=== PATIENT | male | born 1945 | race Caucasian/White ===

== ENCOUNTER → 2021-11-07 | Outpatient (CLI) | payer MEDICARE, OTHER ==
[2021-11-07 14:10] LABS: Basophils # (A) 0.03 X 10*3/uL (0.00-0.10); Basophils % (A) 0.4 %; Eosinophils # (A) 0.12 X 10*3/uL (0.04-0.35); Eosinophils % (A) 1.6 %; HCT 46.4 % (39.6-50.0); Immature Grans, Automated 0.4 %; Lymphocytes # (A) 1.06 X 10*3/uL (0.90-5.00); Lymphocytes % (A) 14.4 %; MCH 27.9 pg (27.0-32.0); MCHC 30.2 g/dL (32.0-37.0); MCV 92.4 fL (80.0-97.0); Mean Platelet Volume 9.1 fL (9.5-12.2); Monocytes # (A) 0.79 X 10*3/uL (0.20-1.00); Monocytes % (A) 10.8 %; NRBC Per 100 WBC 0 /100 WBCS (0.0-0.0); Neutrophils # (A) 5.31 X 10*3/uL (1.80-7.70); Neutrophils % (A) 72.4 %; Platelet Count 421 X 10*3/uL (140-440); RBC 5.02 X 10*6/uL (4.40-5.60); RDW 14.4 % (11.5-14.5); WBC 7.34 X 10*3/uL (4.50-10.00)
[2021-11-07 14:18] LABS: African American GFR (CKD) 96.5 (60.0-200.0); Anion Gap 8.3 mmol/L (10.00-18.00); BUN/Creat Ratio 11.33 Ratio (12.00-20.00); Blood Urea Nitrogen 10.2 mg/dL (9.0-27.0); Calcium 9.2 mg/dL (8.7-10.3); Carbon Dioxide 28.7 mmol/L (20.0-27.5); Non-African American GFR(CKD) 83.3 (60.0-200.0); Potassium 4.8 mmol/L (3.5-5.5)
== END | disposition home or self-care (01) ==
LOC: LABPAT 10:32
PROVIDERS: ATTEND Urology
DX: Z01.812 Encounter for preprocedural laboratory examination (principal); C67.9 Malignant neoplasm of bladder, unspecified
CPT/HCPCS: 80048; 85025

== ENCOUNTER 2021-11-15 08:43 | Day surgery (SDC) | payer MEDICARE ==
[2021-11-13 15:34] VITALS: BMI 20.5
[~2021-11-15 08:43] MED LIST: LACTATED RINGERS 1,000 ML IV SCH; fentaNYL (PF) 50 MCG/ML 2 ML AMP IV PRN
--- NOTE | 2021-11-15 09:08 | P.GSHP ---
History of Present Illness H&P Date: 11/12/21 Chief Complaint: Bladder cancer The patient is a 76-year-old white male who underwent a radical retropubic prostatectomy in 2010 for prostate cancer. He was also diagnosed with bladder cancer in 2010. He underwent resection and has had no recurrences. However, cystoscopy last month showed small tumors at the right vesicle neck and right trigone. He now comes for resection. Urine cytology is negative. His PSA level is undetectable. - Genitourinary (Male) Genitourinary: Denies dysuria, Denies hematuria, Denies incontinence Past Medical History - Past Family History Brother(s) Family Medical History: Cancer Sister(s) Family Medical History: Cancer Medications and Allergies Home Medications Medication Instructions Recorded Confirmed Type Albuterol Inhaler [Ventolin Hfa 2 puff INHALATION QID 11/13/21 11/13/21 History Inhaler] Albuterol Nebulized [Ventolin 2.5 mg INHALATION QID 11/13/21 11/13/21 History Nebulized] Budesonide [Pulmicort] 0.5 mg INHALATION BID 11/13/21 11/13/21 History Fluticasone Propionate 1 spray EA NOSTRIL DAILY PRN 11/13/21 11/13/21 History [Fluticasone Propionate [place]] Ipratropium/Albuter 20-100Mcg 2 puff INHALATION QID 11/13/21 11/13/21 History [Combivent Respimat 20-100Mcg Inhaler] Omalizumab [Xolair] 150 mg SQ Q14D 11/13/21 11/13/21 History Allergies Allergy/AdvReac Type Severity Reaction Status Date / Time Iodinated Contrast Media Allergy Rash/Hives Verified 11/13/21 14:59 Surgical - Exam - General well developed, well nourished, no distress - Neck no masses, trachea midline - Respiratory normal respiratory effort - Abdomen Abdomen: soft, non tender, no guarding, no rigid, no rebound Hernia: inguinal - Genitourinary normal penis with no external lesions, testicles non-tender - Psychiatric oriented to time, oriented to person, oriented to place, speech is normal, memory intact Assessment and Plan (1) Malignant neoplasm of bladder, unspecified Current Visit: Yes Status: Acute Code(s): C67.9 - MALIGNANT NEOPLASM OF BLADDER, UNSPECIFIED SNOMED Code(s): 663559072 Plan: The patient has significant COPD, which requires the use of home oxygen. It was thus felt that he should undergo bladder tumor resection under a spinal anesthetic. The procedure then reviewed in detail with him. He is aware of potential risks, which include anesthesia, bleeding, infection, bladder perforation, and postoperative urinary retention.
[2021-11-15 09:13] VITALS: RESP 16
[2021-11-15] MEDS ORDERED: ONDANSETRON 4 MG/2 ML VIAL ONE (09:32)
[2021-11-15] MEDS ORDERED: DEXAMETHASONE SOD PHOSPHATE 4 MG/ML 1 ML VIAL IVP ONE (09:35)
[2021-11-15] MEDS ORDERED: fentaNYL (PF) 50 MCG/ML 2 ML AMP ONE (12:20)
[2021-11-15] MEDS ORDERED: PROPOFOL 10 MG/ML 20 ML VIAL IV ONE (12:20)
[2021-11-15] MEDS ORDERED: MIDAZOLAM 2 MG/2 ML VIAL ONE (12:20)
[2021-11-15 13:42] VITALS: TEMP 97.1
[2021-11-15] MEDS: HYDROmorphone 0.5 MG/0.5 ML SYRINGE IVP PRN ×2 (13:46→14:24)
[2021-11-15] MEDS ORDERED: ONDANSETRON 4 MG/2 ML VIAL IVP ONE (14:53)
--- NOTE | 2021-11-15 15:12 | P.OP ---
Date of Procedure: 11/15/21 Preoperative Diagnosis: Urothelial carcinoma the bladder Postoperative Diagnosis: Same Procedure(s) Performed: Cystoscopy, transurethral resection of bladder tumor (TUR-BT) Anesthesia: spinal Surgeon: Jesus Huynh Estimated Blood Loss (ml): 5 IV fluids (ml): 400 Condition: stable Disposition: PACU Indications for Procedure: The patient is a 76-year-old white male who underwent a radical retropubic prostatectomy in 2010 for prostate cancer. He was also diagnosed with bladder cancer in 2010. He underwent resection and has had no recurrences. However, cystoscopy last month showed small tumors at the right vesicle neck and right trigone. He now comes for resection. Urine cytology is negative. His PSA level is undetectable. Operative Findings: Several confluent papillary tumors involving the right hemitrigone, comprising an area of 2.5-3 cm diameter. Description of Procedure: The patient was taken in the operating room and placed in the dorsal lithotomy position, with his legs supported in Joel stirrups. The external genitalia was prepped and draped sterilely. The 25-Pak[place] ACMI resectoscope sheath was introduced into the bladder. The bladder was inspected. Both ureteral orifices were of normal anatomic location and configuration, and clear urine effluxed from both. The entire bladder was examined, revealing a 2.5-3.0 cm collection of papillary tumors over the right hemitrigone. No tumors were seen elsewhere in the bladder. The prostate was surgically absent. Using the bipolar cutting loop, the tumors were resected down to the muscle. It was necessary to resect the right ureteral orifice. Clear urine continued to effluxed from it. Excellent hemostasis was attained, though the use of electrocautery was avoided immediately adjacent to the right ureteral orifice. The resected tissue was saved and sent for pathologic examination. The resectoscope was removed, and an 18-Pakistani Thompson catheter was inserted. The return was clear. The patient tolerated the procedure well. He was taken to the recovery room in stable condition.
[2021-11-15 15:41] VITALS: BP 165/98; PULSE 89
== END 2021-11-15 16:14 | disposition home or self-care (01) ==
LOC: OR 08:43
PROVIDERS: ATTEND Urology
DX: C67.9 Malignant neoplasm of bladder, unspecified (principal); I10 Essential (primary) hypertension; J44.9 Chronic obstructive pulmonary disease, unspecified; Z91.041 Radiographic dye allergy status; Z87.891 Personal history of nicotine dependence; Z85.46 Personal history of malignant neoplasm of prostate; Z79.51 Long term (current) use of inhaled steroids; Z79.899 Other long term (current) drug therapy
CPT/HCPCS: 52235; 88307; J2250; J1100; J2405; J0690; J3010; J2704; J1170

== ENCOUNTER → 2022-03-08 | Outpatient (CLI) | payer MEDICARE ==
[2022-03-08 22:32] LABS: Basophils # (A) 0.04 X 10*3/uL (0.00-0.10); Basophils % (A) 0.5 %; Eosinophils # (A) 0.42 X 10*3/uL (0.04-0.35); Eosinophils % (A) 5.3 %; HCT 48.1 % (39.6-50.0); HGB 14.8 g/dL (13.0-17.0); Immature Grans, Automated 0.5 %; Lymphocytes # (A) 1.48 X 10*3/uL (0.90-5.00); Lymphocytes % (A) 18.6 %; MCHC 30.8 g/dL (32.0-37.0); MCV 94.3 fL (80.0-97.0); Mean Platelet Volume 9.2 fL (9.5-12.2); Monocytes # (A) 0.97 X 10*3/uL (0.20-1.00); Monocytes % (A) 12.2 %; NRBC Per 100 WBC 0 /100 WBCS (0.0-0.0); Neutrophils # (A) 5.02 X 10*3/uL (1.80-7.70); Neutrophils % (A) 62.9 %; Platelet Count 389 X 10*3/uL (140-440); RDW 14.3 % (11.5-14.5); WBC 7.97 X 10*3/uL (4.50-10.00)
[2022-03-08 23:26] LABS: African American GFR (CKD) 97.3 (60.0-200.0); Anion Gap 9.6 mmol/L (10.00-18.00); BUN/Creat Ratio 15.19 Ratio (12.00-20.00); Blood Urea Nitrogen 13.4 mg/dL (9.0-27.0); Calcium 9.5 mg/dL (8.7-10.3); Carbon Dioxide 28.9 mmol/L (20.0-27.5); Potassium 5.3 mmol/L (3.5-5.5)
== END | disposition home or self-care (01) ==
LOC: LABPAT 13:11
PROVIDERS: ATTEND Urology
DX: Z01.812 Encounter for preprocedural laboratory examination (principal); C67.9 Malignant neoplasm of bladder, unspecified
CPT/HCPCS: 36415; 80048; 85025

== ENCOUNTER → 2022-07-23 | Outpatient (CLI) | payer MEDICARE ==
[2022-07-23 20:10] LABS: African American GFR (CKD) 96.5 (60.0-200.0); Anion Gap 8.8 mmol/L (10.00-18.00); BUN/Creat Ratio 18.33 Ratio (12.00-20.00); Blood Urea Nitrogen 16.5 mg/dL (9.0-27.0); Calcium 9.9 mg/dL (8.7-10.3); Carbon Dioxide 28.2 mmol/L (20.0-27.5); Non-African American GFR(CKD) 83.3 (60.0-200.0); Potassium 4.6 mmol/L (3.5-5.5)
[2022-07-23 20:22] LABS: Basophils # (A) 0.03 X 10*3/uL (0.00-0.10); Basophils % (A) 0.3 %; Eosinophils # (A) 0.19 X 10*3/uL (0.04-0.35); HGB 14.7 g/dL (13.0-17.0); Immature Grans, Automated 0.5 %; Lymphocytes % (A) 12.8 %; MCH 28.9 pg (27.0-32.0); MCV 90.4 fL (80.0-97.0); Mean Platelet Volume 9.4 fL (9.5-12.2); Monocytes # (A) 1.05 X 10*3/uL (0.20-1.00); Monocytes % (A) 11.2 %; NRBC Per 100 WBC 0 /100 WBCS (0.0-0.0); Neutrophils # (A) 6.84 X 10*3/uL (1.80-7.70); Neutrophils % (A) 73.2 %; Platelet Count 357 X 10*3/uL (140-440); RBC 5.09 X 10*6/uL (4.40-5.60); RDW 13.2 % (11.5-14.5); WBC 9.36 X 10*3/uL (4.50-10.00)
== END | disposition home or self-care (01) ==
LOC: LABPAT 13:23
PROVIDERS: ATTEND Urology
DX: Z01.812 Encounter for preprocedural laboratory examination (principal); C67.9 Malignant neoplasm of bladder, unspecified
CPT/HCPCS: 80048; 85025

== ENCOUNTER 2022-08-01 09:12 | Day surgery (SDC) | payer MEDICARE ==
--- NOTE | 2022-07-30 22:00 | P.GSHP ---
History of Present Illness H&P Date: 07/30/22 Chief Complaint: Bladder cancer The patient is a 76-year-old white male who underwent a radical retropubic prostatectomy in 2010 for prostate cancer. He was also diagnosed with bladder cancer in 2010. He underwent resection and had no recurrences until last summer, at which time cystoscopy showed small tumors at the right vesical neck and right trigone. He now comes for resection. He underwent resection of several confluent papillary tumors involving the right hemitrigone on on 11/15/2021. Pathologically, this revealed low-grade, noninvasive urothelial carcinoma. He then underwent resection of 2 small recurrent tumors at the bladder dome in April 2022, showing no evidence of malignancy. Recent cystoscopy has shown flat tumor on the right anterior bladder wall, as well as delayed healing at the bladder dome. His PSA level is undetectable. - Genitourinary (Male) Genitourinary: Denies hematuria Past Medical History Past Medical History: Asthma, Cancer, COPD, Hearing Disorder / Deafness, Neurologic Disorder, Osteoarthritis (OA) Additional Past Medical History / Comment(s): Current bladder cancer. Emphysema. "Severe COPD." O2 2-2.5L 23/09. SOB with walking long distances. Difficulty swallowing pills. Hx prostate cancer 5 yrs ago. "Blood pressure elevated recently, no medication required, being monitored by Dr". cramping in fingers and toes at times. "Very poor hearing rt ear wears hearing aid, totally deaf left ear." History of Any Multi-Drug Resistant Organisms: None Reported Past Surgical History: Prostate Surgery Additional Past Surgical History / Comment(s): Vasectomy, left lung surgery removed lower lobe. "Trouble with malin catheter plugging up after prostate surgery, had to go to ER 3 times." Requesting "use of largest catheter possible this time please." did ok after last cystoscopy, bladder bx Past Anesthesia/Blood Transfusion Reactions: No Reported Reaction Additional Past Anesthesia/Blood Transfusion Reaction / Comment(s): per pt's stated, Dr Golden said pt cannot be "knocked out completely" & can have hearing aid in rt ear because deaf in left ear. She states Dr Golden talked with Dr Huynh in the past. Smoking Status: Former smoker - Past Family History Brother(s) Family Medical History: Cancer Sister(s) Family Medical History: Cancer Additional Family Medical History / Comment(s): Bone cancer Daughter(s) Additional Family Medical History / Comment(s): tumor in bowels Medications and Allergies Home Medications Medication Instructions Recorded Confirmed Type Albuterol Inhaler [Ventolin Hfa 2 puff INHALATION QID 11/13/21 07/25/22 History Inhaler] Albuterol Nebulized [Ventolin 2.5 mg INHALATION QID 11/13/21 07/25/22 History Nebulized] Budesonide [Pulmicort] 0.5 mg INHALATION BID 11/13/21 07/25/22 History Fluticasone Propionate 1 spray EA NOSTRIL DAILY PRN 11/13/21 07/25/22 History [Fluticasone Propionate [place]] Ipratropium/Albuter 20-100Mcg 2 puff INHALATION QID 11/13/21 07/25/22 History [Combivent Respimat 20-100Mcg Inhaler] Omalizumab [Xolair] 150 mg SQ Q14D 11/13/21 07/25/22 History Allergies Allergy/AdvReac Type Severity Reaction Status Date / Time Iodinated Contrast Media Allergy Rash/Hives Verified 07/25/22 13:07 Surgical - Exam - General well developed, well nourished, no distress - Respiratory normal respiratory effort - Abdomen Abdomen: soft, non tender, no guarding, no rigid, no rebound - Genitourinary normal penis with no external lesions, testicles non-tender - Psychiatric oriented to time, oriented to person, oriented to place, speech is normal, memory intact Assessment and Plan (1) Malignant neoplasm of bladder, unspecified Status: Acute Code(s): C67.9 - MALIGNANT NEOPLASM OF BLADDER, UNSPECIFIED SNOMED Code(s): 201008568 Plan: Cystoscopy, transurethral resection of bladder tumor. Gemcitabine will be instilled intravesically post resection to reduce the likelihood of recurrent bladder cancer. Patient is aware of potential risks, which include anesthesia, bleeding, infection, and bladder perforation.
[~2022-08-01 09:12] MED LIST changes: +DEXAMETHASONE SOD PHOSPHATE 4 MG/ML 1 ML VIAL IV ONE; +GEMCITABINE HCL 1,000 MG in SODIUM CHLORIDE 0.9% 40 ML, EMPTY SYRINGE 1 SYR MISCELLANE ONE; +HYDROmorphone 0.5 MG/0.5 ML SYRINGE IVP PRN; +MIDAZOLAM 2 MG/2 ML VIAL IV PRN; +ONDANSETRON 4 MG/2 ML VIAL IVP ONE; -fentaNYL (PF) 50 MCG/ML 2 ML AMP IV PRN
[2022-08-01 10:07] LABS: Prothrombin Time 10.3 sec (9.0-12.0)
[2022-08-01] MEDS ORDERED: MIDAZOLAM 2 MG/2 ML VIAL ONE (11:35)
[2022-08-01] MEDS ORDERED: PROPOFOL 10 MG/ML 20 ML VIAL IV ONE (11:35)
[2022-08-01] MEDS ORDERED: LIDOCAINE 2% INJ 20 MG/ML (2 ML VIAL) ONE (11:35)
--- NOTE | 2022-08-01 12:42 | P.OP ---
Date of Procedure: 08/01/22 Preoperative Diagnosis: Urothelial carcinoma the bladder Postoperative Diagnosis: Same Procedure(s) Performed: Cystoscopy, transurethral resection of bladder tumor (medium), instillation of intravesical gemcitabine Anesthesia: spinal Surgeon: Jesus Huynh Estimated Blood Loss (ml): 5 IV fluids (ml): 400 Pathology: other (Bladder tumor fragments) Condition: stable Disposition: PACU Indications for Procedure: The patient is a 76-year-old white male who underwent a radical retropubic prostatectomy in 2010 for prostate cancer. He was also diagnosed with bladder cancer in 2010. He underwent resection and had no recurrences until last summer, at which time cystoscopy showed small tumors at the right vesical neck and right trigone. He now comes for resection. He underwent resection of several confluent papillary tumors involving the right hemitrigone on on 11/15/2021. Pathologically, this revealed low-grade, noninvasive urothelial carcinoma. He then underwent resection of 2 small recurrent tumors at the bladder dome in April 2022, showing no evidence of malignancy. Recent cystoscopy has shown flat tumor on the right anterior bladder wall, as well as delayed healing at the bladder dome. His PSA level is undetectable. Operative Findings: Recurrent tumor, anterior bladder wall. Chronic inflammation of bladder dome, site of recent excisional biopsies. Description of Procedure: The patient was taken in the operating room and placed in the dorsal lithotomy position, with his legs supported in Joel stirrups. The external genitalia was prepped and draped sterilely. The 25-[place] ACMI resectoscope sheath was introduced into the bladder. The prostate was absent. The bladder was inspected. Both ureteral orifices were of normal anatomic location and configuration, and clear urine effluxed from both. The entire bladder was examined, revealing chronic inflammation at the bladder dome, the site of recent excisional biopsy. Some shaggy tissue was adherent to the mucosa. Distal to this on the anterior bladder wall was a flat tumor measuring approximately 2 cm in diameter. Using the bipolar cutting loop, the tumor was resected down to the superficial muscle. Next, the area of chronic inflammation was resected, as was the adjacent urothelium which showed urothelial changes. Excellent hemostasis was attained, and there was no evidence of bladder perforation. The resected tissue was saved and sent for pathologic examination. An 18-Maced[place] Thompson catheter was inserted. The return was clear. 2 g of Gemcitabine was instilled into the bladder. The Thompson catheter was plugged. The patient tolerated the procedure well and was taken to the recovery room in stable condition.
[2022-08-01 12:45] VITALS: TEMP 97.4
[2022-08-01] MEDS ORDERED: LABETALOL 5 MG/ML VIAL MDV IVP ONE (16:44)
[2022-08-01] MEDS ORDERED: hydrALAZINE HCL 20 MG/ML 1 ML VIAL ONE (17:26)
[2022-08-01] MEDS ORDERED: hydrALAZINE HCL 20 MG/ML 1 ML VIAL IVP ONE (17:29)
[2022-08-01 18:03] VITALS: BP 138/83; PULSE 103; RESP 20
== END 2022-08-01 18:19 | disposition home or self-care (01) ==
LOC: OR 09:12
PROVIDERS: ATTEND Urology
DX: C67.9 Malignant neoplasm of bladder, unspecified (principal); Z85.46 Personal history of malignant neoplasm of prostate; Z90.79 Acquired absence of other genital organ(s); M19.90 Unspecified osteoarthritis, unspecified site; J43.9 Emphysema, unspecified; Z87.891 Personal history of nicotine dependence; H91.92 Unspecified hearing loss, left ear; Z79.51 Long term (current) use of inhaled steroids; Z91.041 Radiographic dye allergy status
CPT/HCPCS: 52235; 85610; 85730; 88307; J2250; J0360; J1100; J0690; J2405; J2704; J2001

== ENCOUNTER 2023-07-10 09:00 | Day surgery (SDC) | payer MEDICARE, OTHER ==
--- NOTE | 2023-07-09 22:59 | P.GSHP ---
History of Present Illness H&P Date: 07/09/23 Chief Complaint: Bladder Cancer The patient is a 77-year-old white male who underwent a radical retropubic prostatectomy in 2010 for prostate cancer. He was also diagnosed with bladder cancer in 2010. He underwent resection and had no recurrences until 2021, at which time cystoscopy showed small tumors at the right vesical neck and right trigone. He underwent resection of several confluent papillary tumors involving the right hemitrigone on on 11/15/2021. Pathologically, this revealed low- grade, noninvasive urothelial carcinoma. He then underwent resection of recurrent tumors in April 2022, showing no evidence of malignancy, and again in August 2022 (showing TA low-grade TCC). Recent cystoscopy has shown delay healing at the bladder dome with adjacent tumors. His PSA level is undetectable. - Genitourinary (Male) Genitourinary: Denies hematuria Past Medical History Past Medical History: Asthma, Cancer, COPD, Hearing Disorder / Deafness, Neurologic Disorder, Osteoarthritis (OA) Additional Past Medical History / Comment(s): Current bladder cancer. Emphysema. "Severe COPD." O2 2 23/09. SOB with walking long distances. Difficulty swallowing pills. Hx prostate cancer 5 yrs ago. "Blood pressure elevated recently, no medication required, being monitored by Dr". cramping in fingers and toes at times. "Very poor hearing, totally deaf left ear.". allergies History of Any Multi-Drug Resistant Organisms: None Reported Past Surgical History: Prostate Surgery Additional Past Surgical History / Comment(s): Vasectomy, left lung surgery removed lower lobe. "Trouble with malin catheter plugging up after prostate surgery, had to go to ER 3 times." Requesting "use of largest catheter possible this time please." did ok after last cystoscopy Past Anesthesia/Blood Transfusion Reactions: No Reported Reaction Additional Past Anesthesia/Blood Transfusion Reaction / Comment(s): per pt's stated, Dr Golden said pt cannot be "knocked out completely" cautious due to lung issues & can have hearing aid in rt ear because deaf in left ear. She states Dr Golden talked with Dr Huynh in the past. Smoking Status: Former smoker - Past Family History Brother(s) Family Medical History: Cancer, Myocardial Infarction (ID) Sister(s) Family Medical History: Asthma, Cancer Additional Family Medical History / Comment(s): Bone cancer Daughter(s) Additional Family Medical History / Comment(s): tumor in bowels Medications and Allergies Home Medications Medication Instructions Recorded Confirmed Type Albuterol Inhaler [Ventolin Hfa 2 puff INHALATION QID 11/13/21 07/07/23 History Inhaler] Albuterol Nebulized [Ventolin 2.5 mg INHALATION QID 11/13/21 07/07/23 History Nebulized] Budesonide [Pulmicort] 0.5 mg INHALATION BID 11/13/21 07/07/23 History Fluticasone Propionate 1 spray EA NOSTRIL DAILY PRN 11/13/21 07/07/23 History [Fluticasone Propionate [place]] Ipratropium/Albuter 20-100Mcg 2 puff INHALATION QID 11/13/21 07/07/23 History [Combivent Respimat 20-100Mcg Inhaler] Omalizumab [Xolair] 150 mg SQ Q14D 11/13/21 07/07/23 History Aspirin 81 mg PO DIRECTED PRN 07/07/23 07/07/23 History Montelukast [Singulair] 10 mg PO DAILY PRN 07/07/23 07/07/23 History Allergies Allergy/AdvReac Type Severity Reaction Status Date / Time Iodinated Contrast Media Allergy Rash/Hives Verified 07/07/23 08:30 Surgical - Exam - General well developed, well nourished, no distress - Respiratory normal respiratory effort - Genitourinary normal penis with no external lesions, testicles non-tender - Psychiatric oriented to time, oriented to person, oriented to place, speech is normal, memory intact Assessment and Plan (1) Malignant neoplasm of bladder, unspecified Status: Acute Code(s): C67.9 - MALIGNANT NEOPLASM OF BLADDER, UNSPECIFIED SNOMED Code(s): 005666481 Plan: Cystoscopy, TURBT. Patient is aware of risks, which include anesthesia, bleeding, infection, and bladder perforation.
[~2023-07-10 09:00] MED LIST changes: -DEXAMETHASONE SOD PHOSPHATE 4 MG/ML 1 ML VIAL IV ONE; -GEMCITABINE HCL 1,000 MG in SODIUM CHLORIDE 0.9% 40 ML, EMPTY SYRINGE 1 SYR MISCELLANE ONE; -MIDAZOLAM 2 MG/2 ML VIAL IV PRN
[2023-07-10 10:10] LABS: Glucose,Whole Blood 94 mg/dL (70-110)
[2023-07-10] MEDS: LACTATED RINGERS 1,000 ML IV ONE (10:23)
[2023-07-10 10:26] LABS: HCT 43.1 % (39.0-53.0); HGB 13.8 gm/dL (13.0-17.5); MCH 29.6 pg (25.0-35.0); MCV 92.7 fL (80.0-100.0); Mean Platelet Volume 7.4; Platelet Count 383 k/uL (150-450); RBC 4.65 m/uL (4.30-5.90); RDW 13.4 % (11.5-15.5); WBC 6.5 k/uL (3.8-10.6)
[2023-07-10] MEDS ORDERED: PROPOFOL 10 MG/ML 20 ML VIAL IV ONE (10:38)
[2023-07-10] MEDS ORDERED: MIDAZOLAM 2 MG/2 ML VIAL ONE (10:38)
[2023-07-10 10:43] LABS: African American GFR (CKD) >90 (>60 ml/min/1.73 sqM); Anion Gap 7 mmol/L; Blood Urea Nitrogen 17 mg/dL (9-20); Carbon Dioxide 26 mmol/L (22-30); Chloride 107 mmol/L (98-107); Glucose 95 mg/dL (74-99); Non-African American GFR(CKD) 89 (>60 ml/min/1.73 sqM); Potassium 4.7 mmol/L (3.5-5.1); Sodium 140 mmol/L (137-145)
--- NOTE | 2023-07-10 11:38 | P.OP ---
Date of Procedure: 07/10/23 Preoperative Diagnosis: Urothelial carcinoma the bladder Postoperative Diagnosis: Same Procedure(s) Performed: Cystoscopy, transurethral resection of bladder tumor (medium) Anesthesia: spinal Surgeon: Jesus Huynh Estimated Blood Loss (ml): 0 IV fluids (ml): 200 Condition: stable Disposition: PACU Indications for Procedure: The patient is a 77-year-old white male who underwent a radical retropubic prostatectomy in 2010 for prostate cancer. He was also diagnosed with bladder cancer in 2010. He underwent resection and had no recurrences until 2021, at which time cystoscopy showed small tumors at the right vesical neck and right trigone. He underwent resection of several confluent papillary tumors involving the right hemitrigone on on 11/15/2021. Pathologically, this revealed low- grade, noninvasive urothelial carcinoma. He then underwent resection of recurrent tumors in April 2022, showing no evidence of malignancy, and again in August 2022 (showing TA low-grade TCC). Recent cystoscopy has shown delay healing at the bladder dome with adjacent tumors. His PSA level is undetectable. Operative Findings: Delayed healing at bladder dome, with adjacent superficial, low-grade tumors. Description of Procedure: The patient was taken in the operating room and placed in the dorsal lithotomy position, with his legs supported in Joel stirrups. The external genitalia was prepped and draped sterilely. The 25-[place] ACMI resectoscope sheath was introduced into the bladder under direct vision. The bladder was inspected. Both ureteral orifices were of normal anatomic location and configuration, and clear urine effluxed from both. The entire bladder was examined, revealing an area of delayed healing at the bladder dome with adjacent small, superficial low-grade tumors. Using the bipolar cutting loop, the eschar and adjacent tumors were resected down to the superficial muscle. The area of resection/fulguration measured approximately 3 cm in diameter. Excellent hemostasis was attained. There was no evidence of bladder perforation. The resected tissue was saved and sent for pathologic examination. A 20-[place] Thompson catheter was inserted. The return was clear. The patient tolerated the procedure well and was taken to the recovery room in stable condition.
[2023-07-10 12:11] VITALS: TEMP 97.3
[2023-07-10] MEDS: IPRATROPIUM-ALBUTEROL 3 ML NEB INHALATION STA (14:45)
[2023-07-10 15:11] VITALS: PULSE 88; RESP 20
[2023-07-10 15:12] VITALS: BP 177/83
== END 2023-07-10 15:50 | disposition home or self-care (01) ==
LOC: OR 09:00
PROVIDERS: ATTEND Urology
DX: C67.9 Malignant neoplasm of bladder, unspecified (principal); M19.90 Unspecified osteoarthritis, unspecified site; J43.9 Emphysema, unspecified; Z79.51 Long term (current) use of inhaled steroids; Z85.46 Personal history of malignant neoplasm of prostate; Z85.51 Personal history of malignant neoplasm of bladder; Z87.891 Personal history of nicotine dependence
CPT/HCPCS: 52235; 94640; 80048; 85027; J0690; 88307